=== PATIENT | female | born 2000 | race Hispanic/Latino ===

== ENCOUNTER 2019-09-22 10:00 | Inpatient (IN) | payer MEDICAID ==
[~2019-09-22] VITALS: Ht 149.9 cm; Wt 65.3 kg
[~2019-09-22 10:00] MED LIST: IRON-10 PO; TYL3 PO
[2019-09-23] VITALS (12 sets, daily range): BP systolic 108–134; BP diastolic 57–94
[2019-09-23] MEDS ORDERED: LACTATED RINGERS 1000ML 1,000 ML IV SCH (05:15)
[2019-09-23] MEDS ORDERED: CALDOLOR 800MG+NS 250ML 250 ML IV PRN (05:15)
[2019-09-23] MEDS ORDERED: CEFAZOLIN SODIUM 1 GM VIAL IVP PRN (05:15)
[2019-09-23 06:15] LABS: HEMATOCRIT 30.5 % (36-48); MEAN CORPUSCULAR HEMOGLOBIN 22.1 pg (27.0-33.0); MEAN CORPUSCULAR HGB CONC 29.8 g/dL (32.0-36.0); PLATELET COUNT (AUTO) 210 K/uL (130-400); RED BLOOD CELL COUNT(AUTO) 4.12 MIL/uL (4.00-5.50); RED CELL DISTRIBUTION WIDTH 16.8 % (11.0-15.5); WHITE BLOOD COUNT (AUTO) 6.2 K/uL (4.8-10.8)
[2019-09-23] MEDS ORDERED: ONDANSETRON HCL 4 MG/2 ML VIAL ONE (07:45)
[2019-09-23] MEDS ORDERED: FENTANYL CITRATE PF 50 MCG/1 ML 2ML VIAL ONE (07:45)
[2019-09-23] MEDS ORDERED: DURAMORPH PF1 MG/ML 10ML AMP IV ONE (07:45)
[2019-09-23] MEDS ORDERED: OXYTOCIN 10 USP UNITS/ML ONE ×2 (07:45→07:47)
[2019-09-23] MEDS ORDERED: CEFAZOLIN SODIUM 1 GM VIAL IVP ONE (08:00)
[2019-09-23] MEDS ORDERED: PHENYLEPHRINE HCL 10 MG/ML 1ML VIAL IV ONE (08:20)
[2019-09-23] MEDS ORDERED: MEPERIDINE-PF 75 MG/ML SYG IM PRN (09:00)
[2019-09-23] MEDS ORDERED: PROMETHAZINE HCL 25 MG/ML 1ML AMPULE IM PRN (09:00)
[2019-09-23] MEDS ORDERED: OXYTOCIN-LR 20 UNITS/1000 ML 1,000 ML IV PRN (09:00)
[2019-09-23] MEDS ORDERED: PREN-154 PO (09:56)
[2019-09-23] MEDS ORDERED: DiphenhydrAMINE HCL 50 MG/ML VIAL IVP PRN (10:45)
[2019-09-23] MEDS ORDERED: NALOXONE HCL 0.4 MG/1 ML ML IVP PRN ×3 (10:45)
[2019-09-23] MEDS ORDERED: ONDANSETRON HCL 4 MG/2 ML VIAL IVP PRN (10:45)
[2019-09-23] MEDS: CEFAZOLIN SODIUM 1 GM VIAL IVP SCH ×2 (14:18→22:10)
[2019-09-23] MEDS: CALDOLOR 800MG+NS 250ML 250 ML IV SCH (17:26)
[2019-09-23] MEDS: DEXTROSE 5 %-0.45 % NACL 1,000 ML IV PRN (17:29)
[2019-09-24] MEDS: CALDOLOR 800MG+NS 250ML 250 ML IV SCH (00:46)
[2019-09-24] MEDS: DEXTROSE 5 %-0.45 % NACL 1,000 ML IV PRN (03:04)
[2019-09-24 03:30] VITALS: BP 126/68
--- NOTE | 2019-09-24 03:30 | NUR ---
UNABLE TO DANGLE PT. DUE TO CONSTANT , TURNED FROM SIDE TO SIDE Q 2HRS.
[2019-09-24] MEDS: CEFAZOLIN SODIUM 1 GM VIAL IVP SCH ×2 (05:42→22:00)
--- NOTE | 2019-09-24 06:30 | NUR ---
ARLENE LÓPEZ. PT INST TO CALL FOR ASSIST BEFORE GETTING OUT OF BED, VERBALIZED UNDERSTANDING.
[2019-09-24 06:53] LABS: HEMATOCRIT 28.2 % (36-48); MEAN CORPUSCULAR HGB CONC 29.8 g/dL (32.0-36.0); MEAN CORPUSCULAR VOLUME 73.8 fL (80-100); PLATELET COUNT (AUTO) 192 K/uL (130-400); RED BLOOD CELL COUNT(AUTO) 3.82 MIL/uL (4.00-5.50); RED CELL DISTRIBUTION WIDTH 17.1 % (11.0-15.5); WHITE BLOOD COUNT (AUTO) 8.3 K/uL (4.8-10.8)
[2019-09-24 07:11] LABS: HEPATITIS Bs ANTIGEN SCREEN P Negative (Negative)
[2019-09-24 07:32] VITALS: BP 120/72
--- NOTE | 2019-09-24 07:55 | NUR ---
ASSISTED PATIENT OOB TO RESTROOM. NO C/O DIZZINESS REPORTED. PATIENT VOIDED 400ML OF CLEAR YELLOW URINE. PERICARE GIVEN. PATIENT AMBULATED TO BEDSIDE CHAIR WITHOUT DIFFICULTY. CALL LIGHT LEFT IN REACH OF PATIENT.
--- NOTE | 2019-09-24 08:35 | NUR ---
PATIENT AMBULATING IN HALLWAY WITH SIGNIFICANT OTHER. NO C/O DIZZINESS. STEADY GAIT NOTED.
[2019-09-24] MEDS ORDERED: ACETAMINOPHEN-CODEINE 300/30MG TAB PO PRN (09:00)
[2019-09-24] MEDS ORDERED: HYDROCODONE/ACETAMINOPHEN 5/325 MG TAB PO PRN (09:00)
[2019-09-24] MEDS ORDERED: ACETAMINOPHEN EXTRA STRENGTH 500 MG TABLET PO PRN (09:00)
[2019-09-24] MEDS ORDERED: BISACODYL 10 MG SUPP.RECT RC PRN (09:00)
[2019-09-24] MEDS: IBUPROFEN 800 MG TAB PO SCH ×2 (09:07→17:11)
[2019-09-24] MEDS: DOCUSATE SODIUM 100 MG CAP PO SCH ×2 (09:49→21:19)
[2019-09-24] MEDS: SIMETHICONE 80 MG TAB.CHEW PO PRN ×2 (09:49→21:19)
[2019-09-24 11:30] VITALS: BP 117/67
[2019-09-24 17:00] VITALS: BP 124/68
[2019-09-24 19:23] VITALS: BP 135/79
[2019-09-24 23:25] VITALS: BP 108/58
[2019-09-25] MEDS: IBUPROFEN 800 MG TAB PO SCH ×2 (01:18→08:24)
[2019-09-25 03:34] VITALS: BP 128/71
[2019-09-25] MEDS: CEFAZOLIN SODIUM 1 GM VIAL IVP SCH (06:00)
[2019-09-25 07:17] VITALS: BP 111/49
[2019-09-25] MEDS: SIMETHICONE 80 MG TAB.CHEW PO PRN (08:22)
[2019-09-25] MEDS: DOCUSATE SODIUM 100 MG CAP PO SCH (08:22)
--- NOTE | 2019-09-25 10:45 | NUR ---
verbal and written discharge instructions given, informed of the follow up appointment, prescription given, all questions answered, informed to call the doctor for future concerns, pt voiced understanding to all things discussed. Addendum: 09/25/19 at 1059 by LEIDY PITTMAN RN Amended: Links added.
[2019-09-25 11:13] VITALS: BP 112/58
--- NOTE | 2019-09-25 11:35 | NUR ---
pt is dismissed in stable condition, brought to private car via wheelchair by teri Carrington pcp Addendum: 09/25/19 at 1143 by LEIDY PITTMAN RN Amended: Links added.
== END 2019-09-25 11:35 | disposition home or self-care (01) | DRG 540 ==
LOC: LDH 09-23 05:08 → EDSTATUS 09-23 08:00 → WSH 09-23 10:37
PROC: 10D00Z1 Extraction of Products of Conception, Low, Open Approach (ICD-10-PCS; principal; 2019-09-23 08:00)
DX: O34.211 Maternal care for low transverse scar from previous cesarean delivery (principal); D64.9 Anemia, unspecified; Z3A.39 39 weeks gestation of pregnancy; Z37.0 Single live birth; O99.89 Other specified diseases and conditions complicating pregnancy, childbirth and the puerperium; O99.02 Anemia complicating childbirth; N73.6 Female pelvic peritoneal adhesions (postinfective)
CPT/HCPCS: 36415; 59510; 85027; 86592; 86850; 86900; 86901; 87340; A4344; G0378; J0690; J1741; J2274; J2370; J2405; J2590; J3010; J7120

== ENCOUNTER 2020-03-21 11:51 | Emergency (ER) | payer MEDICAID ==
[~2020-03-21 11:51] MED LIST changes: -IRON-10 PO; +PREN-154 PO; -TYL3 PO
[2020-03-21] MEDS ORDERED: ACETAMINOPHEN 325 MG TAB ONE (12:05)
[2020-03-21] MEDS ORDERED: SULFAMETHOX-TMP DS 800/160 TAB ONE (12:05)
== END 2020-03-21 12:54 | disposition home or self-care (01) ==
LOC: EDH 11:51
DX: L02.31 Cutaneous abscess of buttock (principal)
CPT/HCPCS: 81025